=== PATIENT | male | born 1980 | race Caucasian/White ===

== ENCOUNTER 2018-07-25 01:42 | Inpatient (IN) | payer BC, OTHER ==
--- NOTE | 2018-07-25 01:52 | PDOC ---
History of Present Illness - General History Source: Patient - History of Present Illness Occurred: reports: other Severity: Yes: severe <Jennifer BeanBert - Last Filed: 07/25/18 06:12> <Bianca Hickey - Last Filed: 07/25/18 07:38> - General Stated Complaint: RIGHT LEG PAIN Time Seen by Provider: 07/25/18 01:49 Past History <AlbanianJackelin - Last Filed: 07/25/18 06:12> <Bianca Hickey - Last Filed: 07/25/18 07:38> - Past Medical History Allergies/Adverse Reactions: Allergies Allergy/AdvReac Type Severity Reaction Status Date / Time EGGPLANT Allergy Uncoded 07/25/18 07:36 Home Medications: Ambulatory Orders NK [No Known Home Medication] 07/25/18 Review of Systems - Review of Systems Constitutional: Yes: Weakness. No: Chills, Fever HEENTM: No: Difficulty Swallowing Respiratory: No: Shortness of Breath, Hemoptysis Cardiac (ROS): No: Chest Pain, Lightheadedness, Palpitations Musculoskeletal: Yes: Muscle Pain. No: Back Pain Neurological: No: Headache, Dizziness <AlbanianJackelin - Last Filed: 07/25/18 06:12> *Physical Exam - Vital Signs 07/25/18 05:37 to anterior aspect of thighs b/l, sensation and pulses intact b/l - Physical Exam General Appearance: Yes: Appropriately Dressed. No: Apparent Distress HEENT: positive: Normal Voice Neck: positive: Supple Respiratory/Chest: positive: Lungs Clear, Normal Breath Sounds. negative: Respiratory Distress Cardiovascular: positive: Regular Rate, S1, S2 Gastrointestinal/Abdominal: positive: Soft. negative: Tender Extremity: positive: Normal Inspection, Tender. negative: Swelling Integumentary: positive: Dry, Warm Neurologic: positive: Fully Oriented, Alert, Normal Mood/Affect <AlbanianJackelin Last Filed: 07/25/18 06:12> - Vital Signs Last Vital Signs Temp Pulse Resp BP Pulse Ox 97.9 F 63 20 122/65 98 07/25/18 05:57 07/25/18 05:57 07/25/18 01:56 07/25/18 05:57 07/25/18 05:57 <Bianca Hickey - Last Filed: 07/25/18 07:38> ED Treatment Course - LABORATORY CBC & Chemistry Diagram: 07/25/18 02:15 07/25/18 02:15 <AlbanianJenniferBert - Last Filed: 07/25/18 06:12> - LABORATORY CBC & Chemistry Diagram: 07/25/18 02:15 07/25/18 02:15 - ADDITIONAL ORDERS Additional order review: Laboratory Results 07/25/18 07/25/18 07/25/18 03:00 02:15 02:05 Sodium 137 Potassium 4.5 Chloride 106 Carbon Dioxide 26 Anion Gap 5 L BUN 26.3 H Creatinine 1.1 Est GFR (CKD-EPI)AfAm 98.18 Est GFR (CKD-EPI)NonAf 84.71 Random Glucose 96 Calcium 8.8 Total Bilirubin 0.6 AST 1482 H ALT 325 H Alkaline Phosphatase 77 Creatine Kinase 45054 H Creatine Kinase Index 0.0 CK-MB (CK-2) 35.8 H Total Protein 6.7 Albumin 4.0 Urine Color Yellow Urine Appearance Clear Urine pH 5.5 Ur Specific [place] 1.041 H Urine Protein 3+ H Urine Glucose (UA) Negative Urine Ketones Trace H Urine Blood 3+ H Urine Nitrite Negative Urine Bilirubin Negative Urine Urobilinogen 1.0 Ur Leukocyte Esterase Trace Urine WBC (Auto) 1 Urine RBC (Auto) 1 Urine Casts (Auto) 11 U Epithel Cells (Auto) 1.5 Urine Bacteria (Auto) 2.2 07/25/18 02:15 RBC 5.03 MCV 91.9 MCHC 33.8 RDW 13.0 MPV 9.2 Neutrophils % 66.9 Lymphocytes % 22.9 Monocytes % 9.1 Eosinophils % 0.7 Basophils % 0.4 - Medications Given in the ED: ED Medications Discontinued Medications Generic Name Dose Route Start Last Admin Trade Name Freq PRN Reason Stop Dose Admin Acetaminophen 1,000 mg 07/25/18 02:13 07/25/18 02:23 Ofirmev Injection - IVPB 07/25/18 02:14 1,000 mg ONCE ONE Administration Sodium Chloride 1,000 mls @ 1,000 mls/hr 07/25/18 01:57 07/25/18 02:23 Normal Saline - IV 07/25/18 02:56 1,000 mls/hr ASDIR STA Administration Sodium Chloride 1,000 mls @ 1,000 mls/hr 07/25/18 02:17 07/25/18 03:30 Normal Saline - IV 07/25/18 03:16 1,000 mls/hr ASDIR STA Administration Sodium Chloride 1,000 ml 07/25/18 05:31 07/25/18 05:42 Normal Saline - IV 07/25/18 05:32 1,000 ml ONCE ONE Administration <Bianca Hickey - Last Filed: 07/25/18 07:38> Progress Note - Progress Note Progress Note: Sign out given to IM resident Dr. Anders PGY2, attending to be admitted under, Dr. Pruitt. Pt to receive 4th L of fluids and morphine. <Bianca Hickey - Last Filed: 07/25/18 07:38> Medical Decision Making - Medical Decision Making 07/25/18 01:51 37 yo male, no sig hx, p/w severe b/l thigh pain 3 days. Patient states symptoms started 1 day after doing a new "extreme" exercise regimen for about an 1-1/2 hour that mostly involved working out his lower extremities. Patient also states he feels mildly fatigued, and on 2 occasions noticed dark urine. No nausea or vomiting See exam Concern for rhabdo after extreme exercise Stable w/ diffuse ttp to b/l thighs, no e/o compartment syndrome at this time -pain control -aggressive hydration -labs -reassess 07/25/18 05:00 After> 3 hrs of waiting for CPK, was told that final result still pending as specimen is still "diluting" but as per laborer orchard, current results >25K! On reassessment, patient continues to complain of pain. No evidence of compartment syndrome on exam. As discussed with Dr. Meehan, will continue to hydrate and admit at this time 07/25/18 06:09 Final CPK>70K. Contacted hospitalist for admission, told that I will need to wait for 7am hospitalist to admit. Of note, ED attg placed consult for both renal and vascular. Cr wnl and no e/o compartment syndrome at this time on reassessment 07/25/18 07:00 Signed out to GISELLE Hickey pending admission <Albanian,Jennifer-Yesica - Last Filed: 07/25/18 06:12> *DC/Admit/Observation/Transfer - Discharge Dispostion Decision to Admit order: Yes <Jackelin Bean - Last Filed: 07/25/18 06:12> - Discharge Dispostion Decision to Admit order: Yes <Bianca Hickey - Last Filed: 07/25/18 07:38> Diagnosis at time of Disposition: Rhabdomyolysis Qualifiers: Rhabdomyolysis type: non-traumatic Qualified Code(s): M62.82 - Rhabdomyolysis - Discharge Dispostion Condition at time of disposition: Fair
[2018-07-25] MEDS ORDERED: SODIUM CHLORIDE 1,000 ML IV STA ×3 (01:57→07:37)
[2018-07-25] MEDS ORDERED: ACETAMINOPHEN 1000 MG/100 ML VIAL (NON FORMULARY) IVPB ONE (02:13)
[2018-07-25] MEDS ORDERED: ACETAMINOPHEN INJECTION 100 ML IVPB ONE (02:24)
[2018-07-25 02:35] LABS: BASO % 0.4 % (0-2.0); EOS % 0.7 % (0-4.5); HEMATOCRIT 46.2 % (35.4-49); HEMOGLOBIN 15.6 GM/dL (11.7-16.9); LYMPH % 22.9 % (8-40); MCH 31.1 pg (25.7-33.7); MCHC 33.8 g/dl (32.0-35.9); MEAN CELL VOLUME 91.9 fl (80-96); MEAN PLT VOLUME 9.2 fl (7.5-11.1); MONO % 9.1 % (3.8-10.2); NEUT % 66.9 % (42.8-82.8); RBC 5.03 M/mm3 (4.00-5.60); WHITE BLOOD COUNT 8.4 K/mm3 (4.0-10.0)
[2018-07-25 03:08] LABS: BILIRUBIN,TOTAL 0.6 mg/dL (0.2-1); BLOOD UREA NITROGEN 26.3 mg/dL (7-18); CALCIUM 8.8 mg/dL (8.5-10.1); CREATININE 1.1 mg/dL (0.55-1.3); POTASSIUM 4.5 mmol/L (3.5-5.1); TOT PROT 6.7 g/dl (6.4-8.2)
[2018-07-25 03:48] LABS: EPI CELLS 1.5 /HPF (0-5/HPF); HYALINE CASTS 11 /lpf (0-8); PH,URINE 5.5 (5.0-8.0); URINE APPEARANCE CLEAR; URINE BACTERIA 2.2 /hpf (NEGATIVE); URINE BILIRUBIN NEGATIVE (NEGATIVE); URINE COLOR YELLOW; URINE GLUCOSE (UA) NEGATIVE (NEGATIVE); URINE KETONE TRACE (NEGATIVE); URINE LEUK ESTERASE TRACE (NEGATIVE); URINE NITRITE NEGATIVE (NEGATIVE); URINE PROTEIN 3+ (NEGATIVE); URINE RBC 1 /hpf (0-4); URINE WBC 1 /hpf (0-5)
[2018-07-25] MEDS ORDERED: SODIUM CHLORIDE 0.9% 500 ML INFUS.BAG IV ONE (05:31)
--- NOTE | 2018-07-25 05:38 | PDOC ---
*Physical Exam - Vital Signs Last Vital Signs Temp Pulse Resp BP Pulse Ox 97.7 F 86 20 130/85 97 07/25/18 01:56 07/25/18 01:56 07/25/18 01:56 07/25/18 01:56 07/25/18 01:56 ED Treatment Course - LABORATORY CBC & Chemistry Diagram: 07/25/18 02:15 07/25/18 02:15 - ADDITIONAL ORDERS Additional order review: Laboratory Results 07/25/18 07/25/18 03:00 02:15 Sodium 137 Potassium 4.5 Chloride 106 Carbon Dioxide 26 Anion Gap 5 L BUN 26.3 H Creatinine 1.1 Est GFR (CKD-EPI)AfAm 98.18 Est GFR (CKD-EPI)NonAf 84.71 Random Glucose 96 Calcium 8.8 Total Bilirubin 0.6 AST 1482 H ALT 325 H Alkaline Phosphatase 77 Total Protein 6.7 Albumin 4.0 Urine Color Yellow Urine Appearance Clear Urine pH 5.5 Ur Specific [place] 1.041 H Urine Protein 3+ H Urine Glucose (UA) Negative Urine Ketones Trace H Urine Blood 3+ H Urine Nitrite Negative Urine Bilirubin Negative Urine Urobilinogen 1.0 Ur Leukocyte Esterase Trace Urine WBC (Auto) 1 Urine RBC (Auto) 1 Urine Casts (Auto) 11 U Epithel Cells (Auto) 1.5 Urine Bacteria (Auto) 2.2 07/25/18 02:15 RBC 5.03 MCV 91.9 MCHC 33.8 RDW 13.0 MPV 9.2 Neutrophils % 66.9 Lymphocytes % 22.9 Monocytes % 9.1 Eosinophils % 0.7 Basophils % 0.4 - Medications Given in the ED: ED Medications Discontinued Medications Generic Name Dose Route Start Last Admin Trade Name Freq PRN Reason Stop Dose Admin Acetaminophen 1,000 mg 07/25/18 02:13 07/25/18 02:23 Ofirmev Injection - IVPB 07/25/18 02:14 1,000 mg ONCE ONE Administration Sodium Chloride 1,000 mls @ 1,000 mls/hr 07/25/18 01:57 07/25/18 02:23 Normal Saline - IV 07/25/18 02:56 1,000 mls/hr ASDIR STA Administration Sodium Chloride 1,000 mls @ 1,000 mls/hr 07/25/18 02:17 07/25/18 03:30 Normal Saline - IV 07/25/18 03:16 1,000 mls/hr ASDIR STA Administration Medical Decision Making - Medical Decision Making 07/25/18 05:36 I called ortho to examine for compartment syndrome. They tell me that this goes to vascular, as pt has no broken bones. 07/25/18 05:46 I called Renal; they are aware of the patient. I paged vascular to make them aware of the patient. 07/25/18 05:53 [id number] 07/25/18 05:59 Vascular tells me that they do not check compartment pressures unless it is due to a reperfusion injury. 07/25/18 06:02 Code 99 on floors. AM hospitalist will need to admit the patient. *DC/Admit/Observation/Transfer Diagnosis at time of Disposition: Rhabdomyolysis Qualifiers: Rhabdomyolysis type: non-traumatic Qualified Code(s): M62.82 - Rhabdomyolysis - Discharge Dispostion Condition at time of disposition: Fair - Referrals - Patient Instructions - Post Discharge Activity
[2018-07-25 06:47] LABS: PLATELET COUNT 225 K/MM3 (134-434)
[2018-07-25] MEDS ORDERED: morphine CARPU-JECT 4 MG/1 ML DISP.SYRIN IVPUSH ONE (07:30)
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
[2018-07-25 07:41] LABS: ANION GAP 3 MMOL/L (8-16); BLOOD UREA NITROGEN 20.3 mg/dL (7-18); CALCIUM 8.1 mg/dL (8.5-10.1); CHLORIDE 110 mmol/L (98-107); CO2 29 mmol/L (21-32); GLUCOSE,RANDOM 96 mg/dL (74-106); SODIUM 142 mmol/L (136-145)
[2018-07-25] MEDS ORDERED: morphine SULFATE 4 MG/ML VIAL ONE (07:47)
[2018-07-25] MEDS ORDERED: MORPHINE SULFATE 2 MG/ML VIAL IVPUSH PRN (08:20)
[2018-07-25] MEDS: ENOXAPARIN NA (PORCINE) 40 MG/0.4 ML DISP.SYRIN SQ SCH (09:31)
[2018-07-25 09:43] LABS: INR 1.01 (0.83-1.09); PROTHROMBIN TIME (PATIENT) 11.9 SEC (9.7-13.0)
[2018-07-25 10:19] LABS: ALBUMIN 3.4 g/dl (3.4-5.0); ALK PHOS 69 U/L (45-117); ANION GAP 4 MMOL/L (8-16); BILIRUBIN,TOTAL 0.6 mg/dL (0.2-1); BLOOD UREA NITROGEN 17.1 mg/dL (7-18); CALCIUM 7.9 mg/dL (8.5-10.1); CHLORIDE 112 mmol/L (98-107); CO2 25 mmol/L (21-32); CREATININE 0.8 mg/dL (0.55-1.3); GLUCOSE,RANDOM 100 mg/dL (74-106); POTASSIUM 4.2 mmol/L (3.5-5.1); SGOT/AST 1318 U/L (15-37); SGPT/ALT 310 U/L (13-61); SODIUM 141 mmol/L (136-145); TOT PROT 5.8 g/dl (6.4-8.2)
[2018-07-25 10:49] LABS: COCAINE, UR NEGATIVE ng/ml (CUTOFF=300); METHADONE, UR NEGATIVE ng/ml (CUTOFF=300); PHENCYCLIDINE,URINE NEGATIVE ng/ml (CUTOFF=25); URINE AMPHETAMINES NEGATIVE ng/ml (CUTOFF=500); URINE BARBITURATES NEGATIVE ng/ml (CUTOFF=200); URINE BENZODIAZEPINES NEGATIVE ng/ml (CUTOFF=200)
[2018-07-25 11:08] VITALS: BMI 31.4
[2018-07-25 11:14] LABS: OPIATES, URI POSITIVE ng/ml (CUTOFF=300)
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
[2018-07-25] MEDS: MORPHINE SULFATE 2 MG/ML VIAL IVPUSH PRN ×3 (12:34→20:47)
[2018-07-25] MEDS: SODIUM CHLORIDE 1,000 ML IV SCH ×2 (12:35→17:52)
--- NOTE | 2018-07-25 14:50 | CONSULT ---
Consult Consult Specialty:: Nephrology Reason for Consultation:: rhabdo - History of Present Illness Chief Complaint: leg pain after intense workout History of Present Illness: Pt is a 37 year old male with no significant pmhx who presents to the ER after developing bilateral leg pain after an intense lower ext workout. He says that he has been working out for years however feels that his has plateaued so he went to a new call person. He said that he was doing intense high rep lower ext exercises. He was found to be in rhabdo and I was called to evaluate him. He complains of pain in his quads. He denies drug use. He denies shortness of breath. HE does take protein supplements. - History Source History Provided By: Patient - Alcohol/Substance Use Hx Alcohol Use: No - Smoking History Smoking history: Never smoked Have you smoked in the past 12 months: No Home Medications - Allergies Allergies/Adverse Reactions: Allergies Allergy/AdvReac Type Severity Reaction Status Date / Time No Known Drug Allergies Allergy Verified 07/25/18 07:44 - Home Medications Home Medications: Ambulatory Orders NK [No Known Home Medication] 07/25/18 Family Disease History - Family Disease History Family History: Denies Review of Systems - Review of Systems Constitutional: reports: No Symptoms Eyes: reports: No Symptoms HENT: reports: No Symptoms Neck: reports: No Symptoms Cardiovascular: reports: No Symptoms Respiratory: reports: No Symptoms Gastrointestinal: reports: No Symptoms Genitourinary: reports: No Symptoms Musculoskeletal: reports: Other (bilateral quad pain) Neurological: reports: No Symptoms Endocrine: reports: No Symptoms Hematology/Lymphatic: reports: No Symptoms Psychiatric: reports: No Symptoms Physical Exam Vital Signs: Vital Signs Temperature 97.9 F 07/25/18 13:37 Pulse Rate 72 07/25/18 13:37 Respiratory Rate 18 07/25/18 13:37 Blood Pressure 119/65 07/25/18 13:37 O2 Sat by Pulse Oximetry (%) 98 07/25/18 10:59 Constitutional: Yes: Calm Eyes: Yes: Conjunctiva Clear HENT: Yes: Atraumatic Neck: Yes: Supple Cardiovascular: Yes: S1, S2 Respiratory: Yes: CTA Bilaterally Gastrointestinal: Yes: Soft Renal/: Yes: WNL Musculoskeletal: Yes: Other (bilateral quad pain) Edema: No Neurological: Yes: Oriented Psychiatric: Yes: Oriented Labs: CBC, BMP 07/25/18 02:15 07/25/18 09:10 Laboratory Tests 07/25/18 07/25/18 07/25/18 02:05 02:15 02:15 WBC 8.4 Hgb 15.6 Plt Count 225 PT with INR INR Sodium 137 Potassium 4.5 BUN 26.3 H Creatinine 1.1 AST 1482 H ALT 325 H Creatine Kinase 88942 H Hepatitis A IgM Ab Hepatitis A Ab Total Hep Bs Antigen Hep B Core IgM Ab Hepatitis C Antibody 07/25/18 07/25/18 07/25/18 06:57 09:10 09:10 WBC Hgb Plt Count PT with INR INR Sodium Potassium 5.0 BUN 20.3 H Creatinine 1.0 AST ALT Creatine Kinase > 77010 H Hepatitis A IgM Ab Pending Hepatitis A Ab Total Pending Hep Bs Antigen Pending Hep B Core IgM Ab Pending Hepatitis C Antibody Pending 07/25/18 07/25/18 09:10 09:10 WBC Hgb Plt Count PT with INR 11.90 INR 1.01 Sodium 141 Potassium 4.2 BUN 17.1 Creatinine 0.8 AST 1318 H ALT 310 H Creatine Kinase Hepatitis A IgM Ab Hepatitis A Ab Total Hep Bs Antigen Hep B Core IgM Ab Hepatitis C Antibody Problem List - Problems (1) Rhabdomyolysis Code(s): M62.82 - RHABDOMYOLYSIS Qualifiers: Rhabdomyolysis type: non-traumatic Qualified Code(s): M62.82 - Rhabdomyolysis Assessment/Plan Current Medications Generic Name Dose Route Start Last Admin Trade Name Freq PRN Reason Stop Dose Admin Enoxaparin Sodium 40 mg 07/25/18 10:00 07/25/18 09:31 Lovenox - SQ 40 mg DAILY DAWN Administration Sodium Chloride 1,000 mls @ 200 mls/hr 07/25/18 08:45 07/25/18 12:35 Normal Saline - IV 200 mls/hr ASDIR DAWN Administration Morphine Sulfate 1 mg 07/25/18 08:33 07/25/18 12:34 Morphine Sulfate IVPUSH 07/26/18 08:19 1 mg Q3H PRN Administration PAIN LEVEL 6-10 Impression 1. rhabdo 2. proteinuria 3. hematuria 4. transaminitis Plan - cont fluids - monitor cpk levels - monitor renal function and lft - check renal ultrasound - repeat ua - etiology of rhabdo is likely intense training - check myoglobin
[2018-07-25 15:48] LABS: EPI CELLS 0.3 /HPF (0-5/HPF); HYALINE CASTS 0 /lpf (0-8); URINE APPEARANCE CLEAR; URINE BACTERIA 1.5 /hpf (NEGATIVE); URINE BILIRUBIN NEGATIVE (NEGATIVE); URINE COLOR YELLOW; URINE GLUCOSE (UA) NEGATIVE (NEGATIVE); URINE KETONE NEGATIVE (NEGATIVE); URINE LEUK ESTERASE NEGATIVE (NEGATIVE); URINE NITRITE NEGATIVE (NEGATIVE); URINE PROTEIN NEGATIVE (NEGATIVE); URINE RBC 0 /hpf (0-4); URINE UROBILINOGEN 0.2 mg/dL (0.2-1.0); URINE WBC 1 /hpf (0-5)
[2018-07-25 15:49] LABS: RATIO URIN PROTEIN/URIN CREAT 0.59 MG/DL
[2018-07-25 17:13] LABS: BASO % 0.3 % (0-2.0); EOS % 1.9 % (0-4.5); HEMATOCRIT 42.9 % (35.4-49); HEMOGLOBIN 14.6 GM/dL (11.7-16.9); LYMPH % 40.6 % (8-40); MCH 31.6 pg (25.7-33.7); MCHC 33.9 g/dl (32.0-35.9); MEAN CELL VOLUME 93.1 fl (80-96); MEAN PLT VOLUME 8.9 fl (7.5-11.1); MONO % 9.2 % (3.8-10.2); RDW 13.5 % (11.9-15.9); WHITE BLOOD COUNT 5.6 K/mm3 (4.0-10.0)
[2018-07-25 18:41] LABS: PLATELET COUNT 170 K/MM3 (134-434); PLATELET ESTIMATE ADEQUATE
[2018-07-25 19:06] LABS: ALBUMIN 3.4 g/dl (3.4-5.0); BILIRUBIN,TOTAL 0.3 mg/dL (0.2-1); BLOOD UREA NITROGEN 15.4 mg/dL (7-18); CALCIUM 8.3 mg/dL (8.5-10.1); MAGNESIUM 2.3 mg/dL (1.8-2.4); PHOSPHOROUS 3.6 mg/dL (2.5-4.9); POTASSIUM 4.6 mmol/L (3.5-5.1); TOT PROT 5.8 g/dl (6.4-8.2)
[2018-07-26] MEDS: MORPHINE SULFATE 2 MG/ML VIAL IVPUSH PRN ×4 (00:37→21:27)
[2018-07-26 08:00] LABS: INR 0.95 (0.83-1.09); PROTHROMBIN TIME (PATIENT) 11.2 SEC (9.7-13.0)
[2018-07-26 08:01] LABS: ACTIVATED PTT 30.5 SECONDS (25.2-36.5)
[2018-07-26 08:15] LABS: ALBUMIN 3.8 g/dl (3.4-5.0); BILIRUBIN,TOTAL 0.6 mg/dL (0.2-1); CALCIUM 8.7 mg/dL (8.5-10.1); CREATININE 0.9 mg/dL (0.55-1.3); MAGNESIUM 2.3 mg/dL (1.8-2.4); PHOSPHOROUS 3.4 mg/dL (2.5-4.9); POTASSIUM 4.5 mmol/L (3.5-5.1); TOT PROT 6.5 g/dl (6.4-8.2)
[2018-07-26] MEDS: SODIUM CHLORIDE 1,000 ML IV SCH ×5 (08:41→21:26)
[2018-07-26] MEDS: ENOXAPARIN NA (PORCINE) 40 MG/0.4 ML DISP.SYRIN SQ SCH (09:22)
[2018-07-26 11:12] LABS: HEP A AB, IGM Negative (Negative)
--- NOTE | 2018-07-26 11:38 | EKG ---
Test Reason : Blood Pressure : / mmHG Vent. Rate : 074 BPM Atrial Rate : 074 BPM P-R Int : 178 ms QRS Dur : 090 ms QT Int : 372 ms P-R-T Axes : 054 066 041 degrees QTc Int : 412 ms NORMAL SINUS RHYTHM NORMAL ECG WHEN COMPARED WITH ECG OF 25-JUL-2018 09:01, PREVIOUS ECG PROBALBY SHOWS ARTIFACTS LIKELY NO SIGNIFICANT CHANGES Confirmed by DANIELLE PARKINSON, HILLARY ([id number]) on 07/26/2018 11:38:02 AM Referred By: [facility] Confirmed By:HILLARY SANTOS MD
--- NOTE | 2018-07-26 12:25 | PN ---
Progress Note (short form) - Note Progress Note: Renal follow up for Rhabdomyolysis Pt seen and examined at the bedside awake and alert reports continued pain in legs R>L no cp, sob, abd pain, N/V/D making clear urine Vital Signs Temperature 97.8 F 07/26/18 09:40 Pulse Rate 68 07/26/18 09:40 Respiratory Rate 18 07/26/18 09:40 Blood Pressure 146/74 07/26/18 09:40 O2 Sat by Pulse Oximetry (%) 98 07/25/18 21:00 Intake & Output 07/23/18 07/24/18 07/25/18 07/26/18 23:59 23:59 23:59 23:59 Intake Total 2400 1400 Output Total 1000 Balance 1400 1400 Weight 96.479 kg NAD awake and alert + thigh tenderness no leg edema CBC, BMP 07/26/18 06:27 07/26/18 06:27 Laboratory Tests 07/25/18 07/25/18 07/25/18 02:05 06:57 16:45 Creatine Kinase 35984 H > 19570 H 22502 H 07/26/18 06:27 Creatine Kinase 45706 H Current Medications Enoxaparin Sodium (Lovenox -) 40 mg SQ DAILY DAWN Last Admin: 07/26/18 09:22 Dose: 40 mg Sodium Chloride (Normal Saline -) 1,000 mls @ 250 mls/hr IV ASDIR DAWN Last Admin: 07/26/18 09:20 Dose: 250 mls/hr Morphine Sulfate (Morphine Sulfate) 2 mg IVPUSH Q4H PRN PRN Reason: PAIN LEVEL 6-10 Last Admin: 07/26/18 09:21 Dose: 2 mg 37 year old gentleman with no past medical history presented with LE pain and found to have acute Rhabdomyolysis #Exertional Rhabdomyolysis with preserved renal function Renal function stable continue aggressive IVF Trend CK can discontinue IVF once CK < 5K Trend renal function and electrolytes Thank you Adam Mckeon DO
[2018-07-26 12:36] LABS: PLATELET COUNT 188 K/MM3 (134-434)
[2018-07-26 12:37] LABS: BASO % 0.3 % (0-2.0); EOS % 1.2 % (0-4.5); HEMATOCRIT 44.8 % (35.4-49); LYMPH % 20.6 % (8-40); MCH 31.2 pg (25.7-33.7); MCHC 33.5 g/dl (32.0-35.9); MEAN PLT VOLUME 9.2 fl (7.5-11.1); MONO % 8.9 % (3.8-10.2); RBC 4.81 M/mm3 (4.00-5.60); RDW 13.2 % (11.9-15.9); WHITE BLOOD COUNT 7.4 K/mm3 (4.0-10.0)
[2018-07-26 13:12] LABS: HEP.C VIRUS AB <0.1 s/co ratio (0.0-0.9)
--- NOTE | 2018-07-26 16:02 | PN ---
Physical Exam: SUBJECTIVE: Patient seen and examined at bedside. Pain improved, swelling mildly improved. No overnight events. OBJECTIVE: Vital Signs Period Temp Pulse Resp BP Sys/Bridges Pulse Ox Last 24 Hr 97.8 F-98.5 F 59-78 18-20 109-146/57-74 98-99 GENERAL: A&Ox3, NAD HEENT: NC/AT, PERRLA, EOMI, MMM NECK: Trachea midline, full range of motion, supple. LUNGS: CTA b/l HEART: RRR no m/r/g ABDOMEN: +bs, soft, NT, ND EXTREMITIES: 2+ pulses, warm, well-perfused. 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 SKIN: Warm, dry, normal turgor, no rashes or lesions noted Laboratory Results - last 24 hr 07/25/18 07/25/18 07/25/18 09:10 09:10 15:30 WBC RBC Hgb Hct MCV MCH MCHC RDW Plt Count MPV Absolute Neuts (auto) Neutrophils % Neutrophils % (Manual) Lymphocytes % Monocytes % Eosinophils % Basophils % Nucleated RBC % Platelet Estimate Platelet Comment PT with INR INR PTT (Actin FS) Sodium Potassium Chloride Carbon Dioxide Anion Gap BUN Creatinine Est GFR (CKD-EPI)AfAm Est GFR (CKD-EPI)NonAf Random Glucose Calcium Phosphorus Magnesium Total Bilirubin AST ALT Alkaline Phosphatase Creatine Kinase Creatine Kinase Index CK-MB (CK-2) Total Protein Albumin Urine Color Yellow Urine Appearance Clear Urine pH 7.0 D Ur Specific Guin 1.010 Urine Protein Negative Urine Glucose (UA) Negative Urine Ketones Negative Urine Blood 3+ H Urine Nitrite Negative Urine Bilirubin Negative Urine Urobilinogen 0.2 Ur Leukocyte Esterase Negative Urine WBC (Auto) 1 Urine RBC (Auto) 0 Urine Casts (Auto) 0 U Epithel Cells (Auto) 0.3 Urine Bacteria (Auto) 1.5 Hepatitis A IgM Ab Negative Hep A IgM Ab Confirm Negative Hepatitis A Ab Total Negative Hep Bs Antigen Negative Hep B Core IgM Ab Negative Hepatitis C Antibody <0.1 07/25/18 07/25/18 07/26/18 16:45 16:45 06:27 WBC 5.6 RBC 4.60 Hgb 14.6 Hct 42.9 MCV 93.1 MCH 31.6 MCHC 33.9 RDW 13.5 Plt Count 170 D MPV 8.9 Absolute Neuts (auto) 2.7 Neutrophils % 48.0 D Neutrophils % (Manual) Lymphocytes % 40.6 H D Monocytes % 9.2 Eosinophils % 1.9 D Basophils % 0.3 Nucleated RBC % 0 Platelet Estimate Adequate Platelet Comment Plts.reviewd PT with INR 11.20 INR 0.95 PTT (Actin FS) 30.5 Sodium 142 Potassium 4.6 Chloride 108 H Carbon Dioxide 31 Anion Gap 4 L BUN 15.4 Creatinine 1.0 Est GFR (CKD-EPI)AfAm 110.17 Est GFR (CKD-EPI)NonAf 95.05 Random Glucose 85 Calcium 8.3 L Phosphorus 3.6 Magnesium 2.3 Total Bilirubin 0.3 AST 1230 H ALT 321 H Alkaline Phosphatase 66 Creatine Kinase 60028 H Creatine Kinase Index 0.0 CK-MB (CK-2) 23.5 H Total Protein 5.8 L Albumin 3.4 Urine Color Urine Appearance Urine pH Ur Specific Guin Urine Protein Urine Glucose (UA) Urine Ketones Urine Blood Urine Nitrite Urine Bilirubin Urine Urobilinogen Ur Leukocyte Esterase Urine WBC (Auto) Urine RBC (Auto) Urine Casts (Auto) U Epithel Cells (Auto) Urine Bacteria (Auto) Hepatitis A IgM Ab Hep A IgM Ab Confirm Hepatitis A Ab Total Hep Bs Antigen Hep B Core IgM Ab Hepatitis C Antibody 07/26/18 07/26/18 06:27 06:27 WBC 7.4 RBC 4.81 Hgb 15.0 Hct 44.8 MCV 93.0 MCH 31.2 MCHC 33.5 RDW 13.2 Plt Count 188 MPV 9.2 Absolute Neuts (auto) 5.1 Neutrophils % 69.0 D Neutrophils % (Manual) No Result Required. Lymphocytes % 20.6 D Monocytes % 8.9 Eosinophils % 1.2 Basophils % 0.3 Nucleated RBC % 0 Platelet Estimate Platelet Comment PT with INR INR PTT (Actin FS) Sodium 140 Potassium 4.5 Chloride 106 Carbon Dioxide 28 Anion Gap 5 L BUN 11.0 Creatinine 0.9 Est GFR (CKD-EPI)AfAm 125.13 Est GFR (CKD-EPI)NonAf 107.97 Random Glucose 96 Calcium 8.7 Phosphorus 3.4 Magnesium 2.3 Total Bilirubin 0.6 AST 1174 H ALT 363 H Alkaline Phosphatase 73 Creatine Kinase 27096 H Creatine Kinase Index 0.0 CK-MB (CK-2) 16.8 H Total Protein 6.5 Albumin 3.8 Urine Color Urine Appearance Urine pH Ur Specific Guin Urine Protein Urine Glucose (UA) Urine Ketones Urine Blood Urine Nitrite Urine Bilirubin Urine Urobilinogen Ur Leukocyte Esterase Urine WBC (Auto) Urine RBC (Auto) Urine Casts (Auto) U Epithel Cells (Auto) Urine Bacteria (Auto) Hepatitis A IgM Ab Hep A IgM Ab Confirm Hepatitis A Ab Total Hep Bs Antigen Hep B Core IgM Ab Hepatitis C Antibody Active Medications Generic Name Dose Route Start Last Admin Trade Name Freq PRN Reason Stop Dose Admin Enoxaparin Sodium 40 mg 07/25/18 10:00 07/26/18 09:22 Lovenox - SQ 40 mg DAILY DAWN Administration Sodium Chloride 1,000 mls @ 250 mls/hr 07/26/18 09:06 07/26/18 13:03 Normal Saline - IV 250 mls/hr ASDIR DAWN Administration Morphine Sulfate 2 mg 07/26/18 08:48 07/26/18 14:54 Morphine Sulfate IVPUSH 2 mg Q4H PRN Administration PAIN LEVEL 6-10 ASSESSMENT/PLAN: 37 y/o M, no significant PMHx, p/w rhabdomyolysis 2/2 intensive strength training #rhabdomyolysis -CPK 72k on presentation, now 62k, will trend -marked transaminitis, trending LFTs -vigorous IVF NS @ 250 -Cr stable wnl -nephrology following #FEN -NS 250 -monitor and replete -regular diet #PPx -Lovenox #code -full #dispo -med/surg Visit type - Emergency Visit Emergency Visit: No - New Patient This patient is new to me today: Yes Date on this admission: 07/26/18 - Critical Care Critical Care patient: No
[2018-07-26 16:30] LABS: ALBUMIN 3.4 g/dl (3.4-5.0); BILIRUBIN,TOTAL 0.3 mg/dL (0.2-1); BLOOD UREA NITROGEN 11.2 mg/dL (7-18); CALCIUM 8.5 mg/dL (8.5-10.1); POTASSIUM 4.4 mmol/L (3.5-5.1); TOT PROT 5.9 g/dl (6.4-8.2)
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
[2018-07-26] MEDS: SENNOSIDES/DOCUSATE COMBO (SENNA PLUS) TABLET (UD) PO SCH (21:27)
[2018-07-27] MEDS: MORPHINE SULFATE 2 MG/ML VIAL IVPUSH PRN ×3 (05:03→21:35)
[2018-07-27 08:17] LABS: BASO % 0.1 % (0-2.0); EOS % 1.5 % (0-4.5); HEMATOCRIT 41.7 % (35.4-49); HEMOGLOBIN 14.1 GM/dL (11.7-16.9); LYMPH % 22.5 % (8-40); MCH 31.7 pg (25.7-33.7); MCHC 33.9 g/dl (32.0-35.9); MEAN CELL VOLUME 93.5 fl (80-96); MEAN PLT VOLUME 8.9 fl (7.5-11.1); MONO % 8.5 % (3.8-10.2); NEUT % 67.4 % (42.8-82.8); PLATELET COUNT 169 K/MM3 (134-434); RBC 4.46 M/mm3 (4.00-5.60); RDW 13.3 % (11.9-15.9); WHITE BLOOD COUNT 6.1 K/mm3 (4.0-10.0)
[2018-07-27] MEDS: SODIUM CHLORIDE 1,000 ML IV SCH ×4 (09:06→17:32)
[2018-07-27] MEDS: ENOXAPARIN NA (PORCINE) 40 MG/0.4 ML DISP.SYRIN SQ SCH (09:06)
[2018-07-27] MEDS: SENNOSIDES/DOCUSATE COMBO (SENNA PLUS) TABLET (UD) PO SCH ×2 (09:06→21:35)
[2018-07-27 09:45] LABS: ALBUMIN 3.2 g/dl (3.4-5.0); BILIRUBIN,TOTAL 0.5 mg/dL (0.2-1); BLOOD UREA NITROGEN 9.8 mg/dL (7-18); CALCIUM 8.8 mg/dL (8.5-10.1); MAGNESIUM 2.2 mg/dL (1.8-2.4); PHOSPHOROUS 3.1 mg/dL (2.5-4.9); POTASSIUM 4.5 mmol/L (3.5-5.1); TOT PROT 5.6 g/dl (6.4-8.2)
--- NOTE | 2018-07-27 10:41 | PN ---
Physical Exam: SUBJECTIVE: Patient seen and examined at bedside. Pain and swelling improved. No overnight events. OBJECTIVE: Vital Signs Period Temp Pulse Resp BP Sys/Bridges Pulse Ox Last 24 Hr 97.7 F-98.1 F 58-78 18-20 104-137/56-69 99 GENERAL: A&Ox3, NAD HEENT: NC/AT, PERRLA, EOMI, MMM NECK: Trachea midline, full range of motion, supple. LUNGS: CTA b/l HEART: RRR no m/r/g ABDOMEN: +bs, soft, NT, ND EXTREMITIES: 2+ pulses, warm, well-perfused. 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 SKIN: Warm, dry, normal turgor, no rashes or lesions noted Laboratory Results - last 24 hr 07/25/18 07/25/18 07/25/18 02:15 09:10 09:10 WBC RBC Hgb Hct MCV MCH MCHC RDW Plt Count MPV Absolute Neuts (auto) Neutrophils % Neutrophils % (Manual) Lymphocytes % Monocytes % Eosinophils % Basophils % Nucleated RBC % Sodium Potassium Chloride Carbon Dioxide Anion Gap BUN Creatinine Est GFR (CKD-EPI)AfAm Est GFR (CKD-EPI)NonAf Random Glucose Calcium Phosphorus Magnesium Total Bilirubin AST ALT Alkaline Phosphatase Creatine Kinase Creatine Kinase Index CK-MB (CK-2) Total Protein Albumin Free T3 2.9 Hepatitis A IgM Ab Negative Hep A IgM Ab Confirm Negative Hepatitis A Ab Total Negative Hep Bs Antigen Negative Hep B Core IgM Ab Negative Hepatitis C Antibody <0.1 07/26/18 07/26/18 07/27/18 06:27 14:30 06:00 WBC 7.4 6.1 RBC 4.81 4.46 Hgb 15.0 14.1 Hct 44.8 41.7 MCV 93.0 93.5 MCH 31.2 31.7 MCHC 33.5 33.9 RDW 13.2 13.3 Plt Count 188 169 MPV 9.2 8.9 Absolute Neuts (auto) 5.1 4.1 Neutrophils % 69.0 D 67.4 Neutrophils % (Manual) No Result Required. Lymphocytes % 20.6 D 22.5 Monocytes % 8.9 8.5 Eosinophils % 1.2 1.5 Basophils % 0.3 0.1 Nucleated RBC % 0 0 Sodium 143 Potassium 4.4 Chloride 108 H Carbon Dioxide 31 Anion Gap 4 L BUN 11.2 Creatinine 1.0 Est GFR (CKD-EPI)AfAm 110.17 Est GFR (CKD-EPI)NonAf 95.05 Random Glucose 94 Calcium 8.5 Phosphorus Magnesium Total Bilirubin 0.3 AST 1082 H ALT 339 H Alkaline Phosphatase 69 Creatine Kinase 79031 H Creatine Kinase Index 0.0 CK-MB (CK-2) 12.4 H Total Protein 5.9 L Albumin 3.4 Free T3 Hepatitis A IgM Ab Hep A IgM Ab Confirm Hepatitis A Ab Total Hep Bs Antigen Hep B Core IgM Ab Hepatitis C Antibody 07/27/18 06:00 WBC RBC Hgb Hct MCV MCH MCHC RDW Plt Count MPV Absolute Neuts (auto) Neutrophils % Neutrophils % (Manual) Lymphocytes % Monocytes % Eosinophils % Basophils % Nucleated RBC % Sodium 141 Potassium 4.5 Chloride 106 Carbon Dioxide 31 Anion Gap 3 L BUN 9.8 Creatinine 1.0 Est GFR (CKD-EPI)AfAm 110.17 Est GFR (CKD-EPI)NonAf 95.05 Random Glucose 95 Calcium 8.8 Phosphorus 3.1 Magnesium 2.2 Total Bilirubin 0.5 AST 1033 H ALT 345 H Alkaline Phosphatase 60 Creatine Kinase 92504 H Creatine Kinase Index 0.0 CK-MB (CK-2) 9.61 H Total Protein 5.6 L Albumin 3.2 L Free T3 Hepatitis A IgM Ab Hep A IgM Ab Confirm Hepatitis A Ab Total Hep Bs Antigen Hep B Core IgM Ab Hepatitis C Antibody Active Medications Generic Name Dose Route Start Last Admin Trade Name Freq PRN Reason Stop Dose Admin Enoxaparin Sodium 40 mg 07/25/18 10:00 07/27/18 09:06 Lovenox - SQ 40 mg DAILY DAWN Administration Sodium Chloride 1,000 mls @ 250 mls/hr 07/26/18 09:06 07/27/18 09:06 Normal Saline - IV Not Given ASDIR DAWN Morphine Sulfate 2 mg 07/26/18 08:48 07/27/18 09:12 Morphine Sulfate IVPUSH 2 mg Q4H PRN Administration PAIN LEVEL 6-10 Senna/Docusate Sodium 1 tablet 07/26/18 22:00 07/27/18 09:06 Pericolace - PO Not Given BID [facility] ASSESSMENT/PLAN: 37 y/o M, no significant PMHx, p/w rhabdomyolysis 2/2 intensive strength training #rhabdomyolysis -CPK downtrending, cont IVF -LFTs downtrending -vigorous IVF NS @ 250 -Cr stable wnl -nephrology following #FEN -NS 250 -monitor and replete -regular diet #PPx -Lovenox #code -full #dispo -med/surg Visit type - Emergency Visit Emergency Visit: No - New Patient This patient is new to me today: No - Critical Care Critical Care patient: No
--- NOTE | 2018-07-27 12:49 | EKG ---
Test Reason : Blood Pressure : / mmHG Vent. Rate : 104 BPM Atrial Rate : 076 BPM P-R Int : 000 ms QRS Dur : 084 ms QT Int : 432 ms P-R-T Axes : 000 072 045 degrees QTc Int : 568 ms ATRIAL FIBRILLATION WITH RAPID VENTRICULAR RESPONSE WITH PREMATURE VENTRICULAR OR ABERRANTLY CONDUCTED COMPLEXES ABNORMAL ECG NO PREVIOUS ECGS AVAILABLE Confirmed by Gabriel Dean MD ([id number]) on 07/27/2018 12:48:52 PM Referred By: Confirmed By:Gabriel Dean MD
--- NOTE | 2018-07-27 15:56 | PN ---
Progress Note (short form) - Note Progress Note: Renal follow up for Rhabdomyolysis Pt seen and examined at the bedside awake and alert thigh swelling and tenderness improved but not fully resolved denies any sob, cp, abd pain, N/V/D making clear urine on IVF Vital Signs Temperature 97.7 F 07/27/18 14:28 Pulse Rate 73 07/27/18 14:28 Respiratory Rate 20 07/27/18 14:28 Blood Pressure 142/66 07/27/18 14:28 O2 Sat by Pulse Oximetry (%) 99 07/27/18 09:00 Intake & Output 07/24/18 07/25/18 07/26/18 07/27/18 23:59 23:59 23:59 23:59 Intake Total 2400 5700 2500 Output Total 1000 900 Balance 1400 5700 1600 Weight 96.479 kg NAD awake and alert + thigh tenderness no leg edema CBC, BMP 07/27/18 06:00 07/27/18 06:00 Current Medications Enoxaparin Sodium (Lovenox -) 40 mg SQ DAILY [facility] Last Admin: 07/27/18 09:06 Dose: 40 mg Sodium Chloride (Normal Saline -) 1,000 mls @ 250 mls/hr IV ASDIR [facility] Last Admin: 07/27/18 15:23 Dose: 250 mls/hr Morphine Sulfate (Morphine Sulfate) 2 mg IVPUSH Q4H PRN PRN Reason: PAIN LEVEL 6-10 Last Admin: 07/27/18 09:12 Dose: 2 mg Senna/Docusate Sodium (Pericolace -) 1 tablet PO BID [facility] Last Admin: 07/27/18 09:06 Dose: Not Given 37 year old gentleman with no past medical history presented with LE pain and found to have acute Rhabdomyolysis #Exertional Rhabdomyolysis with preserved renal function Renal function stable Ck levels improved to 36K can decrease rate of IVF Continue to trend CK, risk of MIRIAM is reduced after CK improves to < 5K encouraged oral hydration Thank you Adam Mckeon DO
[2018-07-27] MEDS ORDERED: ASPIRIN 325 MG TABLET ONE (19:43)
[2018-07-28] MEDS: MORPHINE SULFATE 2 MG/ML VIAL IVPUSH PRN ×3 (05:48→16:16)
[2018-07-28 07:26] LABS: BASO % 0.2 % (0-2.0); EOS % 1.9 % (0-4.5); HEMATOCRIT 42.2 % (35.4-49); HEMOGLOBIN 14.4 GM/dL (11.7-16.9); LYMPH % 24.6 % (8-40); MCH 31.4 pg (25.7-33.7); MEAN CELL VOLUME 92.1 fl (80-96); MONO % 8.7 % (3.8-10.2); NEUT % 64.6 % (42.8-82.8); PLATELET COUNT 196 K/MM3 (134-434); RBC 4.58 M/mm3 (4.00-5.60); RDW 12.9 % (11.9-15.9); WHITE BLOOD COUNT 5.5 K/mm3 (4.0-10.0)
[2018-07-28] MEDS: ENOXAPARIN NA (PORCINE) 40 MG/0.4 ML DISP.SYRIN SQ SCH (09:08)
[2018-07-28 09:09] LABS: ALBUMIN 3.3 g/dl (3.4-5.0); ALK PHOS 66 U/L (45-117); ANION GAP 1 MMOL/L (8-16); BILIRUBIN,TOTAL 0.5 mg/dL (0.2-1); BLOOD UREA NITROGEN 11.7 mg/dL (7-18); CALCIUM 8.8 mg/dL (8.5-10.1); CHLORIDE 107 mmol/L (98-107); CO2 31 mmol/L (21-32); GLUCOSE,RANDOM 95 mg/dL (74-106); MAGNESIUM 2.1 mg/dL (1.8-2.4); PHOSPHOROUS 3.4 mg/dL (2.5-4.9); POTASSIUM 4.4 mmol/L (3.5-5.1); SGOT/AST 810 U/L (15-37); SGPT/ALT 359 U/L (13-61); SODIUM 139 mmol/L (136-145)
[2018-07-28] MEDS: SENNOSIDES/DOCUSATE COMBO (SENNA PLUS) TABLET (UD) PO SCH ×2 (09:10→21:08)
[2018-07-28] MEDS: SODIUM CHLORIDE 1,000 ML IV SCH ×2 (11:33→18:29)
[2018-07-28] MEDS ORDERED: DOCUSATE SODIUM 100 MG CAPSULE (FP) PO PRN (16:52)
--- NOTE | 2018-07-28 16:57 | PN ---
Teaching Attending Note Name of Resident: Wallace Dobson ATTENDING PHYSICIAN STATEMENT I saw and evaluated the patient. I reviewed the resident's note and discussed the case with the resident. I agree with the resident's findings and plan as documented. SUBJECTIVE: No fever or chills . thigh pain is better . No SOB OBJECTIVE: NA d Cv : RRR Lungs: CTAB Ext : no edema or erythema ASSESSMENT AND PLAN: 37 y/o man with h/o heart sx who presented with muscle pain after exercise . he was found to have Rhabdo . 1- Rhabdo : - cont IVF - renal function is stable - no signs of fluid overload - dc morphine and add oxy - add bowel regimen 2- DVT PX : lovenox
--- NOTE | 2018-07-28 18:17 | PN ---
Progress Note (short form) - Note Progress Note: Renal follow up for Rhabdomyolysis Pt seen and examined at the bedside awake and alert pain improving making clear urine no sob, cp, leg swelling Vital Signs Temperature 98.9 F 07/28/18 17:05 Pulse Rate 60 07/28/18 17:05 Respiratory Rate 18 07/28/18 17:05 Blood Pressure 120/52 L 07/28/18 17:05 O2 Sat by Pulse Oximetry (%) 99 07/28/18 09:00 Intake & Output 07/25/18 07/26/18 07/27/18 07/28/18 23:59 23:59 23:59 23:59 Intake Total 2400 5700 5850 1550 Output Total 1000 2700 Balance 1400 5700 3150 1550 Weight 96.479 kg NAD awake and alert + thigh tenderness no leg edema CBC, BMP 07/28/18 06:15 07/28/18 06:15 Current Medications Docusate Sodium (Colace -) 100 mg PO BID PRN PRN Reason: CONSTIPATION Enoxaparin Sodium (Lovenox -) 40 mg SQ DAILY [facility] Last Admin: 07/28/18 09:08 Dose: 40 mg Sodium Chloride (Normal Saline -) 1,000 mls @ 150 mls/hr IV ASDIR [facility] Last Admin: 07/28/18 11:33 Dose: 150 mls/hr Oxycodone HCl (Roxicodone -) 5 mg PO Q6H PRN PRN Reason: PAIN LEVEL 6-10 Senna/Docusate Sodium (Pericolace -) 1 tablet PO BID [facility] Last Admin: 07/28/18 09:10 Dose: Not Given 37 year old gentleman with no past medical history presented with LE pain and found to have acute Rhabdomyolysis #Exertional Rhabdomyolysis with preserved renal function Renal function stable Ck levels improved to 21k continue IVF Continue to trend CK, risk of MIRIAM is reduced after CK improves to < 5K encouraged oral hydration Thank you Adam Mckeon DO
[2018-07-28] MEDS: oxyCODONE HCL 5 MG TABLET PO PRN (21:07)
--- NOTE | 2018-07-28 21:07 | PN ---
Physical Exam: SUBJECTIVE: Patient seen and examined at bedside. No acute events overnight. OBJECTIVE: Vital Signs Period Temp Pulse Resp BP Sys/Bridges Pulse Ox Last 24 Hr 97.9 F-98.9 F 55-74 18-20 120-136/52-67 99 GENERAL:NAD HEAD: Normal with no signs of trauma. EYES: EOMI Sclera Clear ENT: MMM. NECK: Trachea midline, full range of motion, supple. LUNGS: CTAB HEART: RRR S1S2 ABDOMEN: Soft, NDNT. EXTREMITIES: 2+ pulses, warm, well-perfused, no edema. NEUROLOGICAL: Cranial nerves II through XII grossly intact. Normal speech, gait not observed. PSYCH: Normal mood, normal affect. SKIN: Warm, dry, normal turgor, no rashes or lesions noted Laboratory Results - last 24 hr 07/28/18 07/28/18 06:15 06:15 WBC 5.5 RBC 4.58 Hgb 14.4 Hct 42.2 MCV 92.1 MCH 31.4 MCHC 34.0 RDW 12.9 Plt Count 196 MPV 9.0 Absolute Neuts (auto) 3.6 Neutrophils % 64.6 Lymphocytes % 24.6 Monocytes % 8.7 Eosinophils % 1.9 Basophils % 0.2 Nucleated RBC % 0 Sodium 139 Potassium 4.4 Chloride 107 Carbon Dioxide 31 Anion Gap 1 L BUN 11.7 Creatinine 1.0 Est GFR (CKD-EPI)AfAm 110.17 Est GFR (CKD-EPI)NonAf 95.05 Random Glucose 95 Calcium 8.8 Phosphorus 3.4 Magnesium 2.1 Total Bilirubin 0.5 AST 810 H ALT 359 H Alkaline Phosphatase 66 Creatine Kinase > 19631 H Creatine Kinase Index 0.0 CK-MB (CK-2) 6.6 H Total Protein 6.0 L Albumin 3.3 L Active Medications Generic Name Dose Route Start Last Admin Trade Name Freq PRN Reason Stop Dose Admin Docusate Sodium 100 mg 07/28/18 16:52 Colace - PO BID PRN CONSTIPATION Enoxaparin Sodium 40 mg 07/25/18 10:00 07/28/18 09:08 Lovenox - SQ 40 mg DAILY DAWN Administration Sodium Chloride 1,000 mls @ 150 mls/hr 07/27/18 15:55 07/28/18 18:29 Normal Saline - IV 150 mls/hr ASDIR DAWN Administration Oxycodone HCl 5 mg 06/12/19 16:52 Roxicodone - PO Q6H PRN PAIN LEVEL 6-10 Senna/Docusate Sodium 1 tablet 07/26/18 22:00 07/28/18 09:10 Pericolace - PO Not Given BID [facility] ASSESSMENT/PLAN: 37 y/o M, no significant PMHx, p/w rhabdomyolysis 2/ intensive strength training #Rhabdomyolysis -CPK downtrending, CK today 07/28/2018----> 21,594 -LFTs downtrending -vigorous IVF NS @ 150 -Cr stable wnl -nephrology following -Analgesia switched to PO #FEN -NS 150 -monitor and replete -regular diet #PPx -Lovenox #code -full #dispo -med/surg Visit type - Emergency Visit Emergency Visit: Yes ED Registration Date: 07/25/18 Care time: The patient presented to the Emergency Department on the above date and was hospitalized for further evaluation of their emergent condition. - New Patient This patient is new to me today: No - Critical Care Critical Care patient: No - Discharge Referral Referred to [facility] Med P.C.: No
[2018-07-29] MEDS: SODIUM CHLORIDE 1,000 ML IV SCH ×3 (01:17→17:57)
[2018-07-29 08:37] LABS: ALBUMIN 3.6 g/dl (3.4-5.0); BILIRUBIN,TOTAL 0.3 mg/dL (0.2-1); BLOOD UREA NITROGEN 15.4 mg/dL (7-18); CALCIUM 8.7 mg/dL (8.5-10.1); CREATININE 0.9 mg/dL (0.55-1.3); MAGNESIUM 2.3 mg/dL (1.8-2.4); PHOSPHOROUS 3.8 mg/dL (2.5-4.9); POTASSIUM 4.4 mmol/L (3.5-5.1); TOT PROT 6.4 g/dl (6.4-8.2)
[2018-07-29 08:42] LABS: HEMATOCRIT 43.8 % (35.4-49); HEMOGLOBIN 14.9 GM/dL (11.7-16.9); MCH 31.6 pg (25.7-33.7); MCHC 34.1 g/dl (32.0-35.9); MEAN CELL VOLUME 92.9 fl (80-96); MEAN PLT VOLUME 9.3 fl (7.5-11.1); RBC 4.72 M/mm3 (4.00-5.60); RDW 13.2 % (11.9-15.9); WHITE BLOOD COUNT 5.6 K/mm3 (4.0-10.0)
[2018-07-29 09:16] LABS: PLATELET COUNT 188 K/MM3 (134-434)
[2018-07-29] MEDS: ENOXAPARIN NA (PORCINE) 40 MG/0.4 ML DISP.SYRIN SQ SCH (09:42)
[2018-07-29] MEDS: SENNOSIDES/DOCUSATE COMBO (SENNA PLUS) TABLET (UD) PO SCH ×2 (09:42→21:01)
--- NOTE | 2018-07-29 12:45 | PN ---
Physical Exam: SUBJECTIVE: Patient seen and examined at bedside. Continues improving, pain now minimal. Urine clear. OBJECTIVE: Vital Signs Period Temp Pulse Resp BP Sys/Bridges Pulse Ox Last 24 Hr 97.6 F-98.9 F 60-74 16-20 120-131/52-73 99-100 GENERAL: A&Ox3, NAD HEENT: NC/AT, PERRLA, EOMI, MMM NECK: Trachea midline, full range of motion, supple. LUNGS: CTA b/l HEART: RRR no m/r/g ABDOMEN: +bs, soft, NT, ND EXTREMITIES: 2+ pulses, warm, well-perfused. Minimal residual swelling and tenderness. 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 SKIN: Warm, dry, normal turgor, no rashes or lesions noted Laboratory Results - last 24 hr 07/29/18 07/29/18 06:18 06:18 WBC 5.6 RBC 4.72 Hgb 14.9 Hct 43.8 MCV 92.9 MCH 31.6 MCHC 34.1 RDW 13.2 Plt Count 188 MPV 9.3 Sodium 140 Potassium 4.4 Chloride 106 Carbon Dioxide 31 Anion Gap 4 L BUN 15.4 Creatinine 0.9 Est GFR (CKD-EPI)AfAm 125.13 Est GFR (CKD-EPI)NonAf 107.97 Random Glucose 83 Calcium 8.7 Phosphorus 3.8 Magnesium 2.3 Total Bilirubin 0.3 AST 593 H ALT 388 H Alkaline Phosphatase 70 Creatine Kinase 52789 H Creatine Kinase Index 0.0 CK-MB (CK-2) 5.8 H Total Protein 6.4 Albumin 3.6 Active Medications Generic Name Dose Route Start Last Admin Trade Name Freq PRN Reason Stop Dose Admin Docusate Sodium 100 mg 07/28/18 16:52 Colace - PO BID PRN CONSTIPATION Enoxaparin Sodium 40 mg 07/25/18 10:00 07/29/18 09:42 Lovenox - SQ 40 mg DAILY DAWN Administration Sodium Chloride 1,000 mls @ 150 mls/hr 07/27/18 15:55 07/29/18 01:17 Normal Saline - IV 150 mls/hr ASDIR DAWN Administration Oxycodone HCl 5 mg 07/28/18 16:52 07/28/18 21:07 Roxicodone - PO 5 mg Q6H PRN Administration PAIN LEVEL 6-10 Senna/Docusate Sodium 1 tablet 07/26/18 22:00 07/29/18 09:42 Pericolace - PO Not Given BID [facility] ASSESSMENT/PLAN: 37 y/o M, no significant PMHx, p/w rhabdomyolysis 2/2 intensive strength training #Rhabdomyolysis -CPK downtrending, CK today 07/29/2018----> 11,997 -LFTs downtrending -vigorous IVF NS @ 150 -Cr stable wnl -nephrology following -Analgesia switched to PO #FEN -NS 150 -monitor and replete -regular diet #PPx -Lovenox #code -full #dispo -med/surg Visit type - Emergency Visit Emergency Visit: No - New Patient This patient is new to me today: No - Critical Care Critical Care patient: No
--- NOTE | 2018-07-29 13:26 | PN ---
Teaching Attending Note Name of Resident: Miguel Ángel Matos ATTENDING PHYSICIAN STATEMENT I saw and evaluated the patient. I reviewed the resident's note and discussed the case with the resident. I agree with the resident's findings and plan as documented. SUBJECTIVE: No fever or chills. painin thighs is better denies any cough or SOB OBJECTIVE: NAD Cv : RRR Lungs: CTAB Ext : no edema or erythema ASSESSMENT AND PLAN: 37 y/o man with h/o heart sx who presented with muscle pain after exercise . he was found to have Rhabdo . 1- Rhabdomyolysis: - cont IVF. no signs of fluid overload - renal function is stable - oxy - bowel regimen 2-Transaminitis : due to Rhabdo. monitor DVT PX : lovenox expect a DC tomorrow if CPK cont to improve. < 5000
--- NOTE | 2018-07-29 16:20 | PN ---
Progress Note (short form) - Note Progress Note: Renal follow up for Rhabdomyolysis Pt seen and examined at the bedside awake and alert no acute complaints making urine pain improved Vital Signs Temperature 98.9 F 07/29/18 13:17 Pulse Rate 93 H 07/29/18 13:17 Respiratory Rate 20 07/29/18 13:17 Blood Pressure 141/66 07/29/18 13:17 O2 Sat by Pulse Oximetry (%) 100 07/29/18 09:00 Intake & Output 07/26/18 07/27/18 07/28/18 07/29/18 23:59 23:59 23:59 23:59 Intake Total 5700 5850 3830 3850 Output Total 2700 1000 Balance 5700 3150 3830 2850 NAD awake and alert no leg edema CBC, BMP 07/29/18 06:18 07/29/18 06:18 Current Medications Docusate Sodium (Colace -) 100 mg PO BID PRN PRN Reason: CONSTIPATION Enoxaparin Sodium (Lovenox -) 40 mg SQ DAILY [facility] Last Admin: 07/29/18 09:42 Dose: 40 mg Sodium Chloride (Normal Saline -) 1,000 mls @ 150 mls/hr IV ASDIR [facility] Last Admin: 07/29/18 01:17 Dose: 150 mls/hr Oxycodone HCl (Roxicodone -) 5 mg PO Q6H PRN PRN Reason: PAIN LEVEL 6-10 Last Admin: 07/28/18 21:07 Dose: 5 mg Senna/Docusate Sodium (Pericolace -) 1 tablet PO BID [facility] Last Admin: 07/29/18 09:42 Dose: Not Given 37 year old gentleman with no past medical history presented with LE pain and found to have acute Rhabdomyolysis #Exertional Rhabdomyolysis with preserved renal function Renal function stable Ck levels improved to 11k continue IVF Continue to trend CK, risk of MIRIAM is reduced after CK improves to < 5K encouraged oral hydration Thank you Adam Mckeon DO
[2018-07-29] MEDS: oxyCODONE HCL 5 MG TABLET PO PRN (19:54)
[2018-07-30] MEDS: oxyCODONE HCL 5 MG TABLET PO PRN ×2 (01:34→09:17)
[2018-07-30 08:11] LABS: ALBUMIN 3.7 g/dl (3.4-5.0); BILIRUBIN,TOTAL 0.4 mg/dL (0.2-1); BLOOD UREA NITROGEN 15.4 mg/dL (7-18); CALCIUM 8.8 mg/dL (8.5-10.1); PHOSPHOROUS 3.3 mg/dL (2.5-4.9); POTASSIUM 4.5 mmol/L (3.5-5.1); TOT PROT 6.6 g/dl (6.4-8.2)
[2018-07-30] MEDS: ENOXAPARIN NA (PORCINE) 40 MG/0.4 ML DISP.SYRIN SQ SCH (09:17)
[2018-07-30 09:19] LABS: BASO % 0.4 % (0-2.0); EOS % 2.6 % (0-4.5); HEMATOCRIT 45.9 % (35.4-49); HEMOGLOBIN 15.3 GM/dL (11.7-16.9); LYMPH % 31.1 % (8-40); MCHC 33.3 g/dl (32.0-35.9); MEAN PLT VOLUME 9.2 fl (7.5-11.1); MONO % 7.8 % (3.8-10.2); NEUT % 58.1 % (42.8-82.8); PLATELET COUNT 208 K/MM3 (134-434); RBC 4.94 M/mm3 (4.00-5.60); RDW 13.1 % (11.9-15.9); WHITE BLOOD COUNT 5.4 K/mm3 (4.0-10.0)
[2018-07-30] MEDS: SENNOSIDES/DOCUSATE COMBO (SENNA PLUS) TABLET (UD) PO SCH (09:39)
[2018-07-30 13:28] VITALS: BP 125/67; PULSE 81; TEMP 98.2
--- NOTE | 2018-07-30 14:06 | PN ---
Progress Note (short form) - Note Progress Note: Renal follow up for Rhabdomyolysis Pt seen and examined at the bedside feels well no sob, abd pain leg pain resolved making urine tolerating oral fluid intake Vital Signs Temperature 98.2 F 07/30/18 13:25 Pulse Rate 81 07/30/18 13:25 Respiratory Rate 18 07/30/18 13:25 Blood Pressure 125/67 07/30/18 13:25 O2 Sat by Pulse Oximetry (%) 98 07/29/18 21:00 Intake & Output 07/27/18 07/28/18 07/29/18 07/30/18 23:59 23:59 23:59 23:59 Intake Total 5850 3830 4450 1300 Output Total 2700 1000 Balance 3150 3830 3450 1300 NAD awake and alert no leg edema CBC, BMP 07/30/18 06:45 07/30/18 06:45 Current Medications Docusate Sodium (Colace -) 100 mg PO BID PRN PRN Reason: CONSTIPATION Enoxaparin Sodium (Lovenox -) 40 mg SQ DAILY [facility] Last Admin: 07/30/18 09:17 Dose: 40 mg Sodium Chloride (Normal Saline -) 1,000 mls @ 150 mls/hr IV ASDIR [facility] Last Admin: 07/29/18 17:57 Dose: 150 mls/hr Oxycodone HCl (Roxicodone -) 5 mg PO Q6H PRN PRN Reason: PAIN LEVEL 6-10 Last Admin: 07/30/18 09:17 Dose: 5 mg Senna/Docusate Sodium (Pericolace -) 1 tablet PO BID [facility] Last Admin: 07/30/18 09:39 Dose: Not Given 37 year old gentleman with no past medical history presented with LE pain and found to have acute Rhabdomyolysis #Exertional Rhabdomyolysis with preserved renal function Renal function stable CK levels improved stable for discharge with outpatient follow up next week Thank you Adam Mckeon DO
--- NOTE | 2018-07-30 15:58 | DS ---
Physical Exam: SUBJECTIVE: Patient seen and examined OBJECTIVE: Vital Signs Period Temp Pulse Resp BP Sys/Bridges Pulse Ox Last 24 Hr 97.5 F-98.6 F 60-81 17-18 122-134/65-75 98-98 PHYSICAL EXAM GENERAL: The patient is awake, alert, and fully oriented, in no acute distress. HEAD: Normal with no signs of trauma. EYES: PERRL, extraocular movements intact, sclera anicteric, conjunctiva clear. ENT: Ears normal, nares patent, oropharynx clear without exudates, moist mucous membranes. NECK: Trachea midline, full range of motion, supple. LUNGS: Breath sounds equal, clear to auscultation bilaterally, no wheezes, no crackles, no accessory muscle use. HEART: Regular rate and rhythm, S1, S2 without murmur, rub or gallop. ABDOMEN: Soft, nontender, nondistended, normoactive bowel sounds, no guarding, no rebound, no hepatosplenomegaly, no masses. EXTREMITIES: 2+ pulses, warm, well-perfused, no edema. NEUROLOGICAL: Cranial nerves II through XII grossly intact. Normal speech, gait not observed. PSYCH: Normal mood, normal affect. SKIN: Warm, dry, normal turgor, no rashes or lesions noted. LABS Laboratory Results - last 24 hr 07/30/18 07/30/18 07/30/18 06:45 06:45 13:24 WBC 5.4 RBC 4.94 Hgb 15.3 Hct 45.9 MCV 93.0 MCH 31.0 MCHC 33.3 RDW 13.1 Plt Count 208 MPV 9.2 Absolute Neuts (auto) 3.1 Neutrophils % 58.1 Lymphocytes % 31.1 D Monocytes % 7.8 Eosinophils % 2.6 Basophils % 0.4 Nucleated RBC % 0 Sodium 138 Potassium 4.5 Chloride 104 Carbon Dioxide 30 Anion Gap 5 L BUN 15.4 Creatinine 1.0 Est GFR (CKD-EPI)AfAm 110.17 Est GFR (CKD-EPI)NonAf 95.05 Random Glucose 93 Calcium 8.8 Phosphorus 3.3 Magnesium 2.0 Total Bilirubin 0.4 AST 377 H ALT 391 H Alkaline Phosphatase 68 Creatine Kinase 6668 H 5261 H Creatine Kinase Index 0.0 0.0 CK-MB (CK-2) 4.7 H 4.7 H Total Protein 6.6 Albumin 3.7 HOSPITAL COURSE: Date of Admission:07/25/18 Date of Discharge: 07/30/18 Discharge Summary Reason For Visit: RHABDOMYOLYSIS Condition: Improved - Instructions Diet, Activity, Other Instructions: You presented to the hospital due to muscle pain. You were found to have severe muscle breakdown. Please repeat a BMP, a blood test in 3 days. Do not partake in any vigorous exercise until you are cleared to do so by your primary care doctor. Dr Clif Ervin [phone]. Please drink at least 8 glasses of water everyday. Please return to the emergency room if your pain worsens or you begin to experience any another abnormal symptoms such as chest pain, shortness of breath , nausea/vomiting, or dizziness Referrals: [facility] [Provider Group] Disposition: HOME - Home Medications Comprehensive Discharge Medication List: Ambulatory Orders NK [No Known Home Medication] 07/25/18 - Discharge Referral Referred to [facility] Med P.C.: No
--- NOTE | 2018-07-30 16:31 | PN ---
Teaching Attending Note Name of Resident: Wallace Dobson ATTENDING PHYSICIAN STATEMENT I saw and evaluated the patient. I reviewed the resident's note and discussed the case with the resident. I agree with the resident's findings and plan as documented. SUBJECTIVE: no pain , no SOB OBJECTIVE: NAD Cv : RRR Lungs: CTAB Ext : no edema or erythema ASSESSMENT AND PLAN: 37 y/o man with h/o heart sx who presented with muscle pain after exercise . he was found to have Rhabdo . 1- Rhabdomyolysis: - CPK improved cont oral hydration 2-Transaminitis : due to Rhabdo. dc home . d/w renal
== END 2018-07-30 18:28 | disposition home or self-care (01) | DRG 558 ==
LOC: JER 01:42 → JERBED 05:28 → J7W 10:26
PROVIDERS: ADMIT Internal Medicine; ATTEND Internal Medicine
DX: M62.82 Rhabdomyolysis (principal); N17.9 Acute kidney failure, unspecified; E86.0 Dehydration; R74.0 Nonspecific elevation of levels of transaminase and lactic acid dehydrogenase [LDH]; R31.9 Hematuria, unspecified; R80.9 Proteinuria, unspecified
CPT/HCPCS: 36415; 76775-TC; 80048; 80053; 80074; 80307; 81003; 82550; 82553; 82570; 83036; 83735; 84100; 84156; 84439; 84443; 84481; 85025; 85027; 85610; 85730; 86708; 93005; 93010; 99284-25; J0131; J7030

== ENCOUNTER 2021-04-14 00:46 | Inpatient (IN) | payer BC, OTHER ==
[2021-04-14 01:04] VITALS: BMI 29.5
[2021-04-14] MEDS ORDERED: KETOROLAC TROMETHAMINE 30 MG/1 ML VIAL IM ONE (01:46)
[2021-04-14] MEDS ORDERED: ACETAMINOPHEN 500 MG TABLET (FP) PO ONE (01:47)
[2021-04-14] MEDS ORDERED: LACTATED RINGERS SOLUTION 1000 ML INFUS.BAG IV ONE ×2 (01:47→03:10)
[2021-04-14] MEDS ORDERED: ACETAMINOPHEN 325 MG TABLET (FP) ONE (01:51)
[2021-04-14] MEDS ORDERED: KETOROLAC TROMETHAMINE 30 MG/1 ML VIAL ONE (01:51)
[2021-04-14 01:52] LABS: EPI CELLS 4 /uL (0-25.1); HYALINE CASTS 1 /uL (0-3.1); PH,URINE 5.5 (5.0-8.0); URINE APPEARANCE CLEAR; URINE BACTERIA 0 /uL (0-1359); URINE BILIRUBIN NEGATIVE (NEGATIVE); URINE COLOR YELLOW; URINE GLUCOSE (UA) NEGATIVE (NEGATIVE); URINE KETONE NEGATIVE (NEGATIVE); URINE LEUK ESTERASE NEGATIVE (NEGATIVE); URINE NITRITE NEGATIVE (NEGATIVE); URINE PROTEIN 1+ (NEGATIVE); URINE RBC 8 /uL (0-23.9); URINE UROBILINOGEN 0.2 mg/dL (0.2-1.0); URINE WBC 2 /uL (0-25.8)
[2021-04-14 02:14] LABS: BASO % 0.6 % (0-2.0); HEMOGLOBIN 13.3 GM/dL (11.7-16.9); LYMPH % 8.1 % (8-40); MCH 31.5 pg (25.7-33.7); MCHC 34.2 g/dl (32.0-35.9); MONO % 8.8 % (3.8-10.2); NEUT % 82.5 % (42.8-82.8); PLATELET COUNT 165 10^3/uL (134-434); RBC 4.24 M/mm3 (4.00-5.60); RDW 13.2 % (11.9-15.9)
[2021-04-14 02:34] LABS: ALBUMIN 3.8 g/dl (3.4-5.0); CALCIUM 9.1 mg/dL (8.5-10.1)
[2021-04-14 02:36] LABS: BLOOD UREA NITROGEN 26.7 mg/dL (7-18)
[2021-04-14 02:38] LABS: CREATININE 2.2 mg/dL (0.55-1.3)
[2021-04-14 02:39] LABS: BILIRUBIN,TOTAL 0.6 mg/dL (0.2-1); TOT PROT 6.8 g/dl (6.4-8.2)
[2021-04-14] MEDS ORDERED: morphine CARPU-JECT 2 MG/1 ML DISP.SYRIN IVPB ONE (05:51)
[2021-04-14] MEDS ORDERED: SODIUM CHLORIDE 1,000 ML IV SCH (06:30)
[2021-04-14] MEDS ORDERED: HEPARIN NA (PORCINE) 5,000 UNITS/ML 1ML VIAL ONE (09:18)
[2021-04-14] MEDS ORDERED: CEFTRIAXONE 1 GM/50 ML BAG ONE (09:18)
[2021-04-14] MEDS: HEPARIN NA (PORCINE) 5,000 UNITS/ML 1ML VIAL SQ SCH ×3 (09:26→22:10)
[2021-04-14] MEDS: CEFTRIAXONE 1 GM in DEXTROSE 5%-WATER - 50 ML IVPB SCH ×2 (09:26→12:40)
[2021-04-14 10:47] LABS: COCAINE, UR NEGATIVE (NEGATIVE); URINE AMPHETAMINES NEGATIVE (NEGATIVE); URINE BENZODIAZEPINES NEGATIVE (NEGATIVE)
[2021-04-14 10:48] LABS: PHENCYCLIDINE,URINE NEGATIVE (NEGATIVE)
[2021-04-14 11:22] LABS: METHADONE, UR NEGATIVE (NEGATIVE); OPIATES, URI POSITIVE (NEGATIVE); URINE BARBITURATES NEGATIVE (NEGATIVE)
[2021-04-14] MEDS: ACETAMINOPHEN 325 MG TABLET (FP) PO PRN ×2 (12:00→20:08)
[2021-04-14] MEDS: LACTATED RINGERS SOLUTION 1,000 ML/1,000 ML INFUS.BAG IV SCH ×2 (12:41→20:45)
[2021-04-14] MEDS ORDERED: LIDOCAINE 5% TOPICAL PATCH TP ONE (20:19)
[2021-04-14 20:49] LABS: CALCIUM 8.3 mg/dL (8.5-10.1)
[2021-04-14 20:50] LABS: BLOOD UREA NITROGEN 30.7 mg/dL (7-18)
[2021-04-14 20:53] LABS: CREATININE 2.5 mg/dL (0.55-1.3)
[2021-04-15] MEDS: ACETAMINOPHEN 325 MG TABLET (FP) PO PRN ×3 (05:47→21:02)
[2021-04-15] MEDS: HEPARIN NA (PORCINE) 5,000 UNITS/ML 1ML VIAL SQ SCH ×3 (05:47→21:03)
[2021-04-15] MEDS ORDERED: LIDOCAINE PATCH REMOVAL MC ONE (08:30)
[2021-04-15] MEDS ORDERED: cefTRIAXone SODIUM 1 GM VIAL ONE (09:16)
[2021-04-15] MEDS ORDERED: DEXTROSE 5%-WATER - 50 ML IVPB ONE (09:17)
[2021-04-15 09:28] LABS: BASO % 0.1 % (0-2.0); EOS % 0.1 % (0-4.5); HEMATOCRIT 38.2 % (35.4-49); HEMOGLOBIN 12.9 GM/dL (11.7-16.9); LYMPH % 7.6 % (8-40); MCHC 33.7 g/dl (32.0-35.9); MEAN CELL VOLUME 91.9 fl (80-96); MEAN PLT VOLUME 9.6 fl (7.5-11.1); NEUT % 85.2 % (42.8-82.8); PLATELET COUNT 167 10^3/uL (134-434); RBC 4.15 M/mm3 (4.00-5.60); RDW 13.5 % (11.9-15.9); WHITE BLOOD COUNT 10.2 K/mm3 (4.0-10.0)
[2021-04-15 09:43] LABS: CALCIUM 8.8 mg/dL (8.5-10.1)
[2021-04-15 09:44] LABS: ALBUMIN 3.4 g/dl (3.4-5.0); BLOOD UREA NITROGEN 21.8 mg/dL (7-18); MAGNESIUM 2.2 mg/dL (1.8-2.4)
[2021-04-15] MEDS ORDERED: LACTATED RINGERS SOLUTION 1,000 ML/1,000 ML INFUS.BAG IV SCH (09:45)
[2021-04-15 09:46] LABS: URIC ACID 4.2 mg/dL (2.6-7.2)
[2021-04-15 09:47] LABS: PHOSPHOROUS 2.5 mg/dL (2.5-4.9)
[2021-04-15 09:48] LABS: BILIRUBIN,TOTAL 0.6 mg/dL (0.2-1); TOT PROT 6.3 g/dl (6.4-8.2)
[2021-04-15] MEDS: CEFTRIAXONE 1 GM in DEXTROSE 5%-WATER - 50 ML IVPB SCH (10:53)
[2021-04-15] MEDS: LACTATED RINGERS SOLUTION 1,000 ML/1,000 ML INFUS.BAG IV SCH ×2 (12:27→20:47)
[2021-04-15 17:15] LABS: SYPHILIS W/ RPR CONF NON-REACTIVE (NONREACTIVE)
[2021-04-15 17:44] LABS: HIV INTERPRETATION NEGATIVE (NEGATIVE)
[2021-04-16] MEDS: LACTATED RINGERS SOLUTION 1,000 ML/1,000 ML INFUS.BAG IV SCH (04:36)
[2021-04-16] MEDS: HEPARIN NA (PORCINE) 5,000 UNITS/ML 1ML VIAL SQ SCH ×3 (05:32→22:33)
[2021-04-16] MEDS ORDERED: cefTRIAXone SODIUM 1 GM VIAL ONE (09:17)
[2021-04-16] MEDS ORDERED: DEXTROSE 5%-WATER - 50 ML IVPB ONE (09:18)
[2021-04-16] MEDS: CEFTRIAXONE 1 GM in DEXTROSE 5%-WATER - 50 ML IVPB SCH (09:48)
[2021-04-16 09:51] LABS: BASO % 0.1 % (0-2.0); HEMATOCRIT 37.1 % (35.4-49); HEMOGLOBIN 12.8 GM/dL (11.7-16.9); LYMPH % 7.1 % (8-40); MCH 31.5 pg (25.7-33.7); MCHC 34.4 g/dl (32.0-35.9); MEAN CELL VOLUME 91.5 fl (80-96); MEAN PLT VOLUME 9.2 fl (7.5-11.1); MONO % 8.4 % (3.8-10.2); NEUT % 84.4 % (42.8-82.8); PLATELET COUNT 173 10^3/uL (134-434); RBC 4.06 M/mm3 (4.00-5.60); RDW 13.4 % (11.9-15.9); WHITE BLOOD COUNT 9.7 K/mm3 (4.0-10.0)
[2021-04-16 10:23] LABS: ALBUMIN 3.2 g/dl (3.4-5.0); CALCIUM 8.5 mg/dL (8.5-10.1); MAGNESIUM 2.2 mg/dL (1.8-2.4)
[2021-04-16 10:26] LABS: CREATININE 1.9 mg/dL (0.55-1.3); PHOSPHOROUS 2.4 mg/dL (2.5-4.9)
[2021-04-16 10:28] LABS: BILIRUBIN,TOTAL 0.8 mg/dL (0.2-1); TOT PROT 6.2 g/dl (6.4-8.2)
[2021-04-16] MEDS: ACETAMINOPHEN 325 MG TABLET (FP) PO PRN ×2 (17:11→22:47)
[2021-04-16] MEDS ORDERED: LACTATED RINGERS SOLUTION 1,000 ML/1,000 ML INFUS.BAG IV SCH (18:15)
[2021-04-17] MEDS: ACETAMINOPHEN 325 MG TABLET (FP) PO PRN ×2 (06:23→11:41)
[2021-04-17] MEDS: HEPARIN NA (PORCINE) 5,000 UNITS/ML 1ML VIAL SQ SCH ×2 (06:23→14:31)
[2021-04-17] MEDS ORDERED: DEXTROSE 5%-WATER - 50 ML IVPB ONE (09:36)
[2021-04-17] MEDS ORDERED: cefTRIAXone SODIUM 1 GM VIAL ONE (09:36)
[2021-04-17] MEDS: CEFTRIAXONE 1 GM in DEXTROSE 5%-WATER - 50 ML IVPB SCH (09:45)
[2021-04-17 09:47] LABS: BASO % 0.1 % (0-2.0); EOS % 0.1 % (0-4.5); HEMATOCRIT 35.4 % (35.4-49); HEMOGLOBIN 12.3 GM/dL (11.7-16.9); LYMPH % 8.5 % (8-40); MCH 31.6 pg (25.7-33.7); MCHC 34.8 g/dl (32.0-35.9); MEAN CELL VOLUME 90.9 fl (80-96); MONO % 9.6 % (3.8-10.2); NEUT % 81.7 % (42.8-82.8); PLATELET COUNT 193 10^3/uL (134-434); RBC 3.89 M/mm3 (4.00-5.60); RDW 13.4 % (11.9-15.9); WHITE BLOOD COUNT 7.4 K/mm3 (4.0-10.0)
[2021-04-17 10:40] LABS: BLOOD UREA NITROGEN 13.1 mg/dL (7-18); MAGNESIUM 2.1 mg/dL (1.8-2.4)
[2021-04-17 10:42] LABS: CALCIUM 8.4 mg/dL (8.5-10.1)
[2021-04-17 10:44] LABS: BILIRUBIN,TOTAL 0.7 mg/dL (0.2-1); CREATININE 1.8 mg/dL (0.55-1.3); PHOSPHOROUS 2.8 mg/dL (2.5-4.9)
[2021-04-17 10:45] LABS: TOT PROT 5.9 g/dl (6.4-8.2)
[2021-04-17 11:07] LABS: SARS-CoV-2 NAA Not Detected (Not Detected)
[2021-04-17 13:45] VITALS: BP 153/75; PULSE 80; TEMP 98.3
== END 2021-04-17 17:10 | disposition home or self-care (01) | DRG 683 ==
LOC: JER 00:46 → JERBED 03:49 → J7W 10:16
PROVIDERS: ADMIT Internal Medicine; ATTEND Internal Medicine
DX: N17.9 Acute kidney failure, unspecified (principal); M62.82 Rhabdomyolysis; D72.829 Elevated white blood cell count, unspecified; R94.5 Abnormal results of liver function studies; R50.9 Fever, unspecified
CPT/HCPCS: 36415; 71046-TC-FY; 74176-TC; 76775-TC; 80048; 80053; 80307; 81003; 82550; 82553; 82570; 83605; 83735; 84100; 84156; 84300; 84484; 84550; 85025; 86140; 86780; 87040; 87086; 87340; 87389; 87517; 87522; 93005; 93010; 94010; 99285-25; C9803; J1644; U0003; U0005